=== PATIENT | female | born 1955 | race Caucasian/White ===

== ENCOUNTER 2020-04-11 18:14 | Emergency (ER) | payer SELFPAY ==
[2020-04-11] MEDS ORDERED: TORAdol 30 mg Injection IV ONE (18:28)
[2020-04-11] MEDS ORDERED: Sodium Chloride 0.9% 1000 ML 1,000 ML IV STA (18:28)
[2020-04-11] MEDS ORDERED: Zofran 4 MG/2 ML VIAL IV ONE (18:28)
[2020-04-11] MEDS ORDERED: Sodium Chloride 0.9% 1000 ML 1,000 ML ONE (18:33)
[2020-04-11] MEDS ORDERED: TORAdol 30 mg Injection ONE (18:33)
[2020-04-11] MEDS ORDERED: Zofran 4 MG/2 ML VIAL ONE (18:33)
--- NOTE | 2020-04-11 18:34 | ERPHSYRPT ---
- History of Present Illness Time Seen by Provider: 04/11/20 18:16 Historian: patient Exam Limitations: no limitations Physician History: Patient is here with abdominal pain. Lower. Patient states she has not had a bowel movement in 4 to 5 days. Very small bowel movements. She has tried home docusate. No falls or trauma. Patient has a previous total hysterectomy. Location: lower abdomen Quality: cramping, constipation Radiation: none Severity: moderate Duration: 4-5 days Timing: gradual Modifying factors/associated signs and symptoms: home docusate Timing/Duration: day(s) Activities at Onset: rest Quality: cramping Abdominal Pain Onset Location: periumbilical, suprapubic Pain Radiation: no radiation Severity of Pain-Max: mild Severity of Pain-Current: mild Modifying Factors: Improves With: analgesics Associated Symptoms: other (constipation ) Previous symptoms: no recent treatment Allergies/Adverse Reactions: codeine Allergy (Mild, Verified 07/07/14 12:11) Hives Home Medications: Clonidine HCl 0.1 mg [Catapres 0.1 MG] 0.1 mg PO TID PRN PRN 07/07/14 [History] Indomethacin 25 mg [Indocin 25 MG] 25 mg PO DAILY 07/07/14 [History] Levothyroxine Sodium [Synthroid] 175 mcg PO DAILY 07/07/14 [History] Metoprolol Succinate 100 mg [Toprol Xl 100 MG] 100 mg PO HS 07/07/14 [History] glipiZIDE [Glipizide] 5 mg PO DAILY 04/11/20 [History] hydroCHLOROthiazide [Hydrochlorothiazide] 25 mg PO DAILY 04/11/20 [History] lisinopriL [Lisinopril] 5 mg PO DAILY 04/11/20 [History] Hx Tetanus, Diphtheria Vaccination/Date Given: Yes Hx Influenza Vaccination/Date Given: No Hx Pneumococcal Vaccination/Date Given: No - Review of Systems Constitutional: No Fever, No Chills Eyes: No Symptoms Ears, Nose, & Throat: No Symptoms Respiratory: No Cough, No Dyspnea Cardiac: No Chest Pain, No Edema, No Syncope Abdominal/Gastrointestinal: Abdominal Pain, Other (constipation), No Nausea, No Vomiting, No Diarrhea Genitourinary Symptoms: No Dysuria Musculoskeletal: No Back Pain, No Neck Pain Skin: No Rash Neurological: No Dizziness, No Focal Weakness, No Sensory Changes Psychological: No Symptoms Endocrine: No Symptoms All Other Systems: Reviewed and Negative - Past Medical History Pertinent Past Medical History: Yes Neurological History: No Pertinent History ENT History: No Pertinent History Cardiac History: High Cholesterol, Hypertension Respiratory History: No Pertinent History Endocrine Medical History: Diabetes Type I, Hypothyroidism Musculoskeletal History: Arthritis GI Medical History: No Pertinent History History: No Pertinent History Psycho-Social History: No Pertinent History Female Reproductive Disorders: No Pertinent History - Past Surgical History Past Surgical History: Yes Neuro Surgical History: No Pertinent History Cardiac: No Pertinent History Respiratory: No Pertinent History Gastrointestinal: Appendectomy, Cholecystectomy Genitourinary: No Pertinent History Musculoskeletal: Orthopedic Surgery Female Surgical History: Hysterectomy - Social History Smoking Status: Never smoker Exposure to second hand smoke: No Drug Use: none Patient Lives Alone: No - Nursing Vital Signs Nursing Vital Signs: Initial Vital Signs Temperature 98.7 F 04/11/20 18:26 Pulse Rate 111 H 04/11/20 18:26 Respiratory Rate 20 04/11/20 18:26 Blood Pressure 220/100 04/11/20 18:26 O2 Sat by Pulse Oximetry 97 04/11/20 18:26 Pain Scale Pain Intensity 1 - Physical Exam General Appearance: no apparent distress, alert Eye Exam: PERRL/EOMI, eyes nml inspection Ears, Nose, Throat Exam: normal ENT inspection, pharynx normal, moist mucous membranes Neck Exam: normal inspection, non-tender, supple, full range of motion Respiratory Exam: normal breath sounds, lungs clear, No respiratory distress Cardiovascular Exam: regular rate/rhythm, normal heart sounds Gastrointestinal/Abdomen Exam: soft, other (very mild lower abdominal pain without rebound or guarding ), No tenderness, No mass Back Exam: normal inspection, normal range of motion, No CVA tenderness, No vertebral tenderness Extremity Exam: normal inspection, normal range of motion, pelvis stable Neurologic Exam: alert, oriented x 3, cooperative, normal mood/affect, nml cerebellar function, sensation nml, No motor deficits Skin Exam: normal color, warm, dry - Course Nursing assessment & vital signs reviewed: Yes Ordered Tests: Active Orders 24 hr Category Date Time Status EKG-ER Only STAT Care 04/11/20 18:28 Active IV Insertion STAT Care 04/11/20 18:28 Active ABDOMEN AND PELVIS W/0 CONTRAS [CT] Stat Exams 04/11/20 19:39 Taken CBC W DIFF Stat Lab 04/11/20 18:50 Completed CMP Stat Lab 04/11/20 18:50 Completed CULTURE,URINE Stat Lab 04/11/20 18:40 Received LIPASE Stat Lab 04/11/20 18:50 Completed TROPONIN Q3H Lab 04/11/20 18:50 Completed TROPONIN Q3H Lab 04/11/20 21:30 Ordered TROPONIN Q3H Lab 04/12/20 00:30 Ordered TROPONIN Q3H Lab 04/12/20 03:30 Ordered TROPONIN Q3H Lab 04/12/20 06:30 Ordered UA W/RFX UR CULTURE Stat Lab 04/11/20 18:40 Completed Medication Summary Discontinued Medications Generic Name Dose Route Start Last Admin Trade Name Jasperq PRN Reason Stop Dose Admin Clonidine 0.1 mg 04/11/20 18:48 04/11/20 18:52 Catapres 0.1 Mg PO 04/11/20 18:49 0.1 mg STAT ONE Administration Clonidine Confirm 04/11/20 18:51 Catapres 0.1 Mg Administered 04/11/20 18:52 Dose 0.1 mg .ROUTE .STK-MED ONE Sodium Chloride 1,000 mls @ 999 mls/hr 04/11/20 18:28 04/11/20 18:35 Sodium Chloride 0.9% 1000 Ml IV 04/11/20 19:28 999 mls/hr .Q1H1M STA Administration Sodium Chloride Confirm 04/11/20 18:33 Sodium Chloride 0.9% 1000 Ml Administered 04/11/20 18:34 Dose 1,000 mls @ ud .ROUTE .STK-MED ONE Ketorolac Tromethamine 30 mg 04/11/20 18:28 04/11/20 18:35 Toradol 30 Mg Injection IV 04/11/20 18:29 30 mg STAT ONE Administration Ketorolac Tromethamine Confirm 04/11/20 18:33 Toradol 30 Mg Injection Administered 04/11/20 18:34 Dose 30 mg .ROUTE .STK-MED ONE Metoprolol Tartrate 100 mg 04/11/20 18:48 04/11/20 18:52 Lopressor 25mg Tab PO 04/11/20 18:49 100 mg STAT ONE Administration Metoprolol Tartrate Confirm 04/11/20 18:51 Lopressor 25mg Tab Administered 04/11/20 18:52 Dose 100 mg .ROUTE .STK-MED ONE Ondansetron HCl 4 mg 04/11/20 18:28 04/11/20 18:35 Zofran 4 Mg/2 Ml Vial IV 04/11/20 18:29 4 mg STAT ONE Administration Ondansetron HCl Confirm 04/11/20 18:33 Zofran 4 Mg/2 Ml Vial Administered 04/11/20 18:34 Dose 4 mg .ROUTE .STK-MED ONE Lab/Rad Data: Laboratory Result Diagrams 04/11/20 18:50 04/11/20 18:50 Laboratory Results 04/11/20 04/11/20 04/11/20 Range/Units 18:50 18:50 18:50 WBC 7.7 (4.0-10.5) K/mm3 RBC 4.04 L (4.1-5.4) M/mm3 Hgb 12.5 (12.0-16.0) gm/dl Hct 38.2 (35-47) % MCV 94.6 (78-100) fl MCH 30.9 (26-32) pg MCHC 32.7 (32-36) g/dl RDW 14.1 H (11.5-14.0) % Plt Count 216 (150-450) K/mm3 MPV 9.7 (7.5-11.0) fl Gran % 73.8 H (36.0-66.0) % Eos # (Auto) 0.08 (0-0.5) Absolute Lymphs (auto) 1.14 (1.0-4.6) Absolute Monos (auto) 0.76 (0.0-1.3) Lymphocytes % 14.9 L (24.0-44.0) % Monocytes % 9.9 (0.0-12.0) % Eosinophils % 1.0 (0.00-5.0) % Basophils % 0.4 (0.0-0.4) % Absolute Granulocytes 5.65 (1.4-6.9) Basophils # 0.03 (0-0.4) Sodium 138 (137-145) mmol/L Potassium 3.6 (3.5-5.1) mmol/L Chloride 102 (98-107) mmol/L Carbon Dioxide 31 H (22-30) mmol/L Anion Gap 8.7 (5-15) MEQ/L BUN 24 H (7-17) mg/dL Creatinine 1.61 H (0.52-1.04) mg/dL Estimated GFR 34.4 ML/MIN Glucose 150 H (74-106) mg/dL Calcium 9.1 (8.4-10.2) mg/dL Total Bilirubin 0.70 (0.2-1.3) mg/dL AST 25 (14-36) U/L ALT 17 (0-35) U/L Alkaline Phosphatase 69 (38-126) U/L Troponin I 0.018 (0.000-0.034) ng/mL Serum Total Protein 7.1 (6.3-8.2) g/dL Albumin 4.2 (3.5-5.0) g/dL Lipase 69 (23-300) U/L Urine Color (YELLOW) Urine Appearance (CLEAR) Urine pH (5-6) Ur Specific [place] (1.005-1.025) Urine Protein (Negative) Urine Ketones (NEGATIVE) Urine Blood (0-5) Burt/ul Urine Nitrite (NEGATIVE) Urine Bilirubin (NEGATIVE) Urine Urobilinogen (0-1) mg/dL Ur Leukocyte Esterase (NEGATIVE) Urine WBC (Auto) (0-5) /HPF Urine RBC (Auto) (0-2) /HPF U Hyaline Cast (Auto) (0-2) /LPF U Epithel Cells (Auto) (FEW) /HPF Urine Bacteria (Auto) (NEGATIVE) /HPF Urine Mucus (Auto) (NEGATIVE) /HPF Urine Culture Reflexed (NO) Urine Glucose (NEGATIVE) mg/dL 04/11/20 Range/Units 18:40 WBC (4.0-10.5) K/mm3 RBC (4.1-5.4) M/mm3 Hgb (12.0-16.0) gm/dl Hct (35-47) % MCV (78-100) fl MCH (26-32) pg MCHC (32-36) g/dl RDW (11.5-14.0) % Plt Count (150-450) K/mm3 MPV (7.5-11.0) fl Gran % (36.0-66.0) % Eos # (Auto) (0-0.5) Absolute Lymphs (auto) (1.0-4.6) Absolute Monos (auto) (0.0-1.3) Lymphocytes % (24.0-44.0) % Monocytes % (0.0-12.0) % Eosinophils % (0.00-5.0) % Basophils % (0.0-0.4) % Absolute Granulocytes (1.4-6.9) Basophils # (0-0.4) Sodium (137-145) mmol/L Potassium (3.5-5.1) mmol/L Chloride (98-107) mmol/L Carbon Dioxide (22-30) mmol/L Anion Gap (5-15) MEQ/L BUN (7-17) mg/dL Creatinine (0.52-1.04) mg/dL Estimated GFR ML/MIN Glucose (74-106) mg/dL Calcium (8.4-10.2) mg/dL Total Bilirubin (0.2-1.3) mg/dL AST (14-36) U/L ALT (0-35) U/L Alkaline Phosphatase (38-126) U/L Troponin I (0.000-0.034) ng/mL Serum Total Protein (6.3-8.2) g/dL Albumin (3.5-5.0) g/dL Lipase (23-300) U/L Urine Color DANIELA (YELLOW) Urine Appearance CLOUDY (CLEAR) Urine pH 5.0 (5-6) Ur Specific [place] 1.032 (1.005-1.025) Urine Protein 100 (Negative) Urine Ketones NEGATIVE (NEGATIVE) Urine Blood NEGATIVE (0-5) Burt/ul Urine Nitrite NEGATIVE (NEGATIVE) Urine Bilirubin SMALL (NEGATIVE) Urine Urobilinogen 2 (0-1) mg/dL Ur Leukocyte Esterase NEGATIVE (NEGATIVE) Urine WBC (Auto) 3-5 (0-5) /HPF Urine RBC (Auto) 3-5 (0-2) /HPF U Hyaline Cast (Auto) 11-25 (0-2) /LPF U Epithel Cells (Auto) FEW (FEW) /HPF Urine Bacteria (Auto) FEW (NEGATIVE) /HPF Urine Mucus (Auto) SLIGHT (NEGATIVE) /HPF Urine Culture Reflexed YES (NO) Urine Glucose NEGATIVE (NEGATIVE) mg/dL - Progress Progress: improved Progress Note: 04/11/20 18:34 differential diagnosis includes kidney stone, compression fracture, infection, UTI, triple AAA - basic labs including: CBC, lipase, CMP, UA - insert IV for fluids, pain meds, nausea control - consider imaging: CT ab/pelvis 04/11/20 20:26 CT scan was read by Dr. Pritchard. A formal report was handed to me. On this he saw some stool constipation. However, patient had no small bowel obstruction. Patient was given her home blood pressure medication here. States that she has not taken it in 48 hours. Patient feels improved with his blood pressure medication. Her blood pressure also improved here in the emergency department without issue. She is able to take p.o. Give her mag citrate MiraLAX going home. She will need an abdominal reexam in 24 hours with her PCP. She will need to return here for any new or changing symptoms. Plan of care was discussed with patient and all questions answered. The patient is agreeable to be discharged home and both verbal and printed discharge instructions were provided.The patient agreed to seek outpatient follow up as discussed. The patient was given strict instructions to return to the emergency department for worsening symptoms or any other emergent concerns. The patient verbalized understanding. - Departure Departure Disposition: Home Clinical Impression: Constipation Condition: Stable Critical Care Time: No Referrals: SUSAN HENRY [Primary Care Provider] - Instructions: Constipation, Adult (DC) Additional Instructions: See your PCP for abdominal reexam in 24 hours. Return here sooner for new or changing symptoms. Prescriptions: Polyethylene Glycol 3350 17 gm [Miralax Powder 17GM PACKET] 17 gm PO DAILY 5 Days #5 packet Bisacodyl/Magnesium Citrate [Tridrate Bowel Evacuant Kit] 1 each EVENING MEAL #1 combo..pkg
[2020-04-11] MEDS ORDERED: Catapres 0.1 MG PO ONE (18:48)
[2020-04-11] MEDS ORDERED: Lopressor 25MG Tab PO ONE (18:48)
[2020-04-11] MEDS ORDERED: Catapres 0.1 MG ONE (18:51)
[2020-04-11] MEDS ORDERED: Lopressor 25MG Tab ONE (18:51)
[2020-04-11 19:05] LABS: Absolute Neutrophil Ct (ANC) 5.65 (1.4-6.9); BASOPHIL % 0.4 % (0.0-0.4); Basophil (Absolute #) 0.03 (0-0.4); Eosinophil (Absolute #) 0.08 (0-0.5); Hematocrit 38.2 % (35-47); Hemoglobin 12.5 gm/dl (12.0-16.0); Lymphocyte (Absolute #) 1.14 (1.0-4.6); Lymphocytes % 14.9 % (24.0-44.0); Mean Cell Volume 94.6 fl (78-100); Mean Corpuscular Hemoglobin 30.9 pg (26-32); Mean Corpuscular Hgb Concent. 32.7 g/dl (32-36); Mean Platelet Volume 9.7 fl (7.5-11.0); Monocyte (Absolute #) 0.76 (0.0-1.3); Monocytes % 9.9 % (0.0-12.0); Neutrophil % 73.8 % (36.0-66.0); Platelet Count 216 K/mm3 (150-450); Red Blood Count 4.04 M/mm3 (4.1-5.4); Red Cell Distribution Width 14.1 % (11.5-14.0); White Blood Count 7.7 K/mm3 (4.0-10.5)
[2020-04-11 19:16] LABS: Appearance CLOUDY (CLEAR); Bacteria FEW /HPF (NEGATIVE); Bilirubin SMALL (NEGATIVE); Blood NEGATIVE Ery/ul (0-5); Epithelial Cells FEW /HPF (FEW); Glucose NEGATIVE (NEGATIVE); Ketones NEGATIVE (NEGATIVE); Leukocyte Esterase NEGATIVE (NEGATIVE); Mucus SLIGHT /HPF (NEGATIVE); Nitrite NEGATIVE (NEGATIVE); Protein,Urine Dip 100 (Negative); Specific Gravity 1.032 (1.005-1.025); Urobilinogen 2 mg/dL (0-1)
[2020-04-11 19:23] LABS: ALBUMIN 4.2 g/dL (3.5-5.0); ANION GAP 8.7 MEQ/L (5-15); BILIRUBIN,TOTAL 0.7 mg/dL (0.2-1.3); Calcium 9.1 mg/dL (8.4-10.2); Creatinine 1 1.61 mg/dL (0.52-1.04); EST GLOMERULAR FILTRATION RATE 34.4 ML/MIN; Potassium 3.6 mmol/L (3.5-5.1); Total Protein 7.1 g/dL (6.3-8.2)
[2020-04-11 20:33] VITALS: BP 182/107; PULSE 72; O2SAT 94
--- NOTE | 2020-04-12 08:47 | XRAY ---
Indication: Constipation. Multiple contiguous axial images obtained through the abdomen and pelvis without contrast as ordered. Comparison: None Lung bases demonstrates bibasilar posterior medial peripheral subsegmental atelectasis/scarring. Heart is not enlarged. Small hiatal hernia. Noncontrasted stomach and bowel loops appear nonobstructed. Cecum demonstrates 2.7 cm lipoma. There is mild scattered colonic fecal debris predominantly in the descending and sigmoid colon with moderate rectal impaction. There has been appendectomy, cholecystectomy, and hysterectomy. No free fluid/air. Mild diffuse fatty liver. Remaining liver, pancreas, spleen, adrenal glands, kidneys, ureters, bladder, and aorta appear unremarkable for noncontrast exam. Osseous structures intact with mild/moderate multilevel degenerative spondylosis including 1-2 mm L4 spondylolisthesis. Moderate-sized fatty umbilical hernia. Impression: 1. Mild fecal stasis with rectal impaction. 2. Incidental cecal lipoma, small hiatal hernia, fatty liver, fatty umbilical hernia, and chronic bony findings. 3. Remaining CT abdomen/pelvis without contrast exam is negative.
== END 2020-04-11 20:53 | disposition home or self-care (01) ==
LOC: ED 18:14
DX: K59.00 Constipation, unspecified (principal); R10.30 Lower abdominal pain, unspecified; I10 Essential (primary) hypertension; E10.9 Type 1 diabetes mellitus without complications; E78.00 Pure hypercholesterolemia, unspecified; E03.9 Hypothyroidism, unspecified; Z79.899 Other long term (current) drug therapy
CPT/HCPCS: 36415; 74176; 80053; 81001; 83690; 84484; 85025; 87086; 93005; 96374; 96375; 99284; J1885; J2405; A9270-GY

== ENCOUNTER 2020-10-06 20:03 | Emergency (ER) | payer OTHER ==
[2020-10-06] MEDS ORDERED: XYLOCAINE 1% HCL 20 ML MDV IJ ONE (20:04)
--- NOTE | 2020-10-06 20:44 | ERPHSYRPT ---
- History of Present Illness Time Seen by Provider: 10/06/20 20:38 Source: patient, family Exam Limitations: no limitations Physician History: This is a 65-year-old obese white female who has a history of hypertension, diabetes and hypothyroidism and is taking Eliquis chronically for history of DVT and pulmonary embolus. Patient does not have any chest pain or shortness of breath. She is taking her medication as prescribed per her report. Patient has noticed pain in her bilateral lower extremities primarily anterior pretibial right worse than left. There is associated redness and warmth. She denies fever and chills. Patient denies keeping her legs elevated at night above level of her heart and also does not keep her legs elevated during the day. Timing/Duration: day(s) (A few days) Quality: burning, painful Severity: mild Location: extremities (Bilateral lower extremities pretibial) Possible Causes: other (Cellulitis) Associated Symptoms: change in skin texture, No difficulty breathing, No fever Allergies/Adverse Reactions: codeine Allergy (Mild, Verified 10/06/20 20:22) Hives Home Medications: Clonidine HCl 0.1 mg [Catapres 0.1 MG] 0.1 mg PO DAILY 07/07/14 [History] Metoprolol Succinate 100 mg [Toprol Xl 100 MG] 100 mg PO BID 07/07/14 [History] glipiZIDE [Glipizide] 10 mg PO BID 04/11/20 [History] lisinopriL [Lisinopril] 5 mg PO DAILY 04/11/20 [History] Apixaban [Eliquis] 1 tab PO DAILY 10/06/20 [History] Clonidine HCl 1 tab PO BID 10/06/20 [History] Glipizide 1 tab PO DAILY 10/06/20 [History] Levothyroxine Sodium 25 Mcg [Synthroid 25 Mcg] 1 tab PO DAILY 10/06/20 [History] Levothyroxine Sodium [Levothyroxine] 1 cap PO DAILY 10/06/20 [History] Hx Tetanus, Diphtheria Vaccination/Date Given: Yes Hx Influenza Vaccination/Date Given: No Hx Pneumococcal Vaccination/Date Given: No Travel Risk - International Travel Have you traveled outside of the country in past 3 weeks: No - Coronavirus Screening Are you exhibiting any of the following symptoms?: No Close contact with a COVID-19 positive Pt in past 14-21 Days: No - Vaccine Status Have you recieved a Covid-19 vaccination: No - Review of Systems Constitutional: No Symptoms Eyes: No Symptoms Ears, Nose, & Throat: No Symptoms Respiratory: No Symptoms Cardiac: No Symptoms Abdominal/Gastrointestinal: No Symptoms Genitourinary Symptoms: No Symptoms Musculoskeletal: No Symptoms Skin: Cellulitis (Bilateral lower extremities pretibial region.) Neurological: No Symptoms Psychological: No Symptoms Endocrine: No Symptoms Hematologic/Lymphatic: No Symptoms Immunological/Allergic: No Symptoms All Other Systems: Reviewed and Negative - Past Medical History Pertinent Past Medical History: Yes Neurological History: No Pertinent History ENT History: No Pertinent History Cardiac History: High Cholesterol, Hypertension Respiratory History: No Pertinent History Endocrine Medical History: Diabetes Type I, Hypothyroidism Musculoskeletal History: Arthritis GI Medical History: No Pertinent History History: No Pertinent History Psycho-Social History: No Pertinent History Female Reproductive Disorders: No Pertinent History - Past Surgical History Past Surgical History: Yes Neuro Surgical History: No Pertinent History Cardiac: No Pertinent History Respiratory: No Pertinent History Gastrointestinal: Appendectomy, Cholecystectomy Genitourinary: No Pertinent History Musculoskeletal: Orthopedic Surgery Female Surgical History: Hysterectomy - Social History Smoking Status: Never smoker Exposure to second hand smoke: No Drug Use: none Patient Lives Alone: No - Physical Exam General Appearance: no apparent distress, alert, anxiety, obese Eye Exam: PERRL/EOMI, eyes nml inspection Ears, Nose, Throat Exam: normal ENT inspection, moist mucous membranes Neck Exam: normal inspection, non-tender, supple, full range of motion Respiratory Exam: airway intact, No chest tenderness, No respiratory distress Gastrointestinal/Abdomen Exam: No tenderness Pelvic Exam: not done Rectal Exam: not done Back Exam: normal inspection, normal range of motion, No CVA tenderness, No vertebral tenderness Extremity Exam: normal range of motion, pelvis stable, tenderness (Bilateral lower extremities pretibial regions. There is associated redness and warmth present.), other (Palpable pedal pulses bilaterally.) Neurologic Exam: alert, oriented x 3, cooperative, director of category management II-XII nml as tested, normal mood/affect, nml cerebellar function, nml station & gait, sensation nml Skin Exam: other (See above. Cellulitis as described above) Lymphatic Exam: No adenopathy SpO2 Interpretation: normal O2 Delivery: Room Air - Course Nursing assessment & vital signs reviewed: Yes - Progress Progress: unchanged Progress Note: 10/06/20 20:42 Medical decision making: This patient is fully anticoagulated on Eliquis. She has been on this medication for 2 months. Patient states that she is taking her medication as prescribed. She does state that she keeps her leg hanging caudally throughout most the day and night. She does not tend to elevate her legs above the level of her heart. She appears to me to have cellulitis bilaterally in her lower extremities. Is in the pretibial region. It is almost in the distribution of chronic venous stasis disease. However I think this is more cellulitis. There is warmth present. It is also tender. She also appears to have lymphedema bilaterally. I spoke with the patient's primary doctor, Dr. Susan Rouse. We discussed the emergency room work-up. We both decided that the patient should be treated with antibiotics then keep her legs elevated overnight and throughout the day when she is not ambulating. Patient is to continue taking her Eliquis. She is to follow-up with Dr. Susan Rouse by phone on Friday, October 09, 2020. Discussed with : Storm Counseled pt/family regarding: diagnosis, need for follow-up - Departure Departure Disposition: Home Clinical Impression: Cellulitis, Lymphedema Condition: Stable Critical Care Time: No Referrals: SUSAN ROUSE [Primary Care Provider] - Additional Instructions: Elevate your legs above the level of your heart at all times when you are not a mbulating. Take your medication as prescribed. Follow-up with Dr. Rouse's office on Friday, October 09, 2020 to make arrangements for pressure stockings and nighttime lymphedema machine if indicated. Prescriptions: Levofloxacin [Levaquin 500 MG Tablet] 500 mg PO DAILY #7 tablet
[2020-10-06 20:50] VITALS: BP 185/91; PULSE 73; O2SAT 98
[2020-10-06] MEDS ORDERED: Rocephin 1000 MG INJ IM ONE (20:56)
[2020-10-06] MEDS ORDERED: Levofloxacin 500 MG Tablet PO ONE (20:56)
[2020-10-06] MEDS ORDERED: Levofloxacin 500 MG Tablet ONE (21:05)
[2020-10-06] MEDS ORDERED: Rocephin 1000 MG INJ ONE (21:05)
== END 2020-10-06 21:39 | disposition home or self-care (01) ==
LOC: ED 20:03
DX: L03.116 Cellulitis of left lower limb (principal); L03.115 Cellulitis of right lower limb; I89.0 Lymphedema, not elsewhere classified; Z79.01 Long term (current) use of anticoagulants; Z79.899 Other long term (current) drug therapy; I10 Essential (primary) hypertension; E03.9 Hypothyroidism, unspecified; E10.9 Type 1 diabetes mellitus without complications
CPT/HCPCS: 96372; 99284; J0696; A9270-GY

== ENCOUNTER 2020-11-15 16:50 | Emergency (ER) | payer OTHER ==
--- NOTE | 2020-11-15 17:07 | ERPHSYRPT ---
- History of Present Illness Time Seen by Provider: 11/15/20 17:07 Source: patient Exam Limitations: no limitations Physician History: This is a 65-year-old obese white female who sees Dr. Mckeon for her medical issues including hypertension, [id number] diabetes, hypothyroid. 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 She is fully an ticoagulated on Eliquis. Since 10/06/2020, the patient has been on 3 different antibiotic treatments for treatment of her bilateral lower leg cellulitis. Patient presents with worsening bilateral lower leg pain. She does keep her legs elevated above level heart and does wear bilateral Gideon wraps from her toes to below the knees. Patient does have some kidney issues and her last buttonhole maker was Dr. Leong she has not seen him in quite a while. She has been off antibiotics for the last 7 to 10 days. Method of Injury: other (No injury) Occurred: other (Chronic) Quality: aching Severity of Pain-Max: mild (To moderate) Severity of Pain-Current: mild (Mild to moderate) Lower Extremities Pain: leg: bilateral Modifying Factors: Improves With: movement Allergies/Adverse Reactions: codeine Allergy (Mild, Verified 11/15/20 17:28) Hives Home Medications: Clonidine HCl 0.1 mg [Catapres 0.1 MG] 0.1 mg PO DAILY 07/07/14 [History] Metoprolol Succinate 100 mg [Toprol Xl 100 MG] 100 mg PO BID 07/07/14 [History] glipiZIDE [Glipizide] 10 mg PO BID 04/11/20 [History] lisinopriL [Lisinopril] 5 mg PO DAILY 04/11/20 [History] Apixaban [Eliquis] 1 tab PO DAILY 10/06/20 [History] Clonidine HCl 1 tab PO BID 10/06/20 [History] Glipizide 1 tab PO DAILY 10/06/20 [History] Levothyroxine Sodium 25 Mcg [Synthroid 25 Mcg] 1 tab PO DAILY 10/06/20 [History] Levothyroxine Sodium [Levothyroxine] 1 cap PO DAILY 10/06/20 [History] Amlodipine Besylate 5 mg [Norvasc 5 mg] 5 mg PO DAILY 11/15/20 [History] Loratadine 10 mg [Claritin 10 mg] 10 mg PO DAILY 11/15/20 [History] PARoxetine HCl [Paxil] 20 mg PO DAILY 11/15/20 [History] Hx Tetanus, Diphtheria Vaccination/Date Given: Yes Hx Influenza Vaccination/Date Given: No Hx Pneumococcal Vaccination/Date Given: No Travel Risk - International Travel Have you traveled outside of the country in past 3 weeks: No - Coronavirus Screening Are you exhibiting any of the following symptoms?: No Close contact with a COVID-19 positive Pt in past 14-21 Days: No - Vaccine Status Have you recieved a Covid-19 vaccination: No - Review of Systems Constitutional: No Symptoms Eyes: No Symptoms Ears, Nose, & Throat: No Symptoms Respiratory: No Symptoms Cardiac: No Symptoms Abdominal/Gastrointestinal: No Symptoms Genitourinary Symptoms: No Symptoms Musculoskeletal: Other (Bilateral lower leg pain) Skin: Dryness, Other Neurological: No Symptoms Psychological: No Symptoms Endocrine: No Symptoms Hematologic/Lymphatic: No Symptoms Immunological/Allergic: No Symptoms All Other Systems: Reviewed and Negative - Past Medical History Pertinent Past Medical History: Yes Neurological History: No Pertinent History ENT History: No Pertinent History Cardiac History: High Cholesterol, Hypertension Respiratory History: No Pertinent History Endocrine Medical History: Diabetes Type I, Hypothyroidism Musculoskeletal History: Arthritis GI Medical History: No Pertinent History History: No Pertinent History Psycho-Social History: No Pertinent History Female Reproductive Disorders: No Pertinent History - Past Surgical History Past Surgical History: Yes Neuro Surgical History: No Pertinent History Cardiac: No Pertinent History Respiratory: No Pertinent History Gastrointestinal: Appendectomy, Cholecystectomy Genitourinary: No Pertinent History Musculoskeletal: Orthopedic Surgery Female Surgical History: Hysterectomy - Social History Smoking Status: Never smoker Exposure to second hand smoke: No Drug Use: none Patient Lives Alone: No - Nursing Vital Signs Nursing Vital Signs: Initial Vital Signs Temperature 97.7 F 11/15/20 17:13 Pulse Rate 86 11/15/20 17:13 Blood Pressure 160/88 11/15/20 17:13 O2 Sat by Pulse Oximetry 96 11/15/20 17:13 Pain Scale Pain Intensity 6 - Physical Exam General Appearance: no apparent distress, alert, anxiety, obese Eyes, Ears, Nose, Throat Exam: normal ENT inspection, moist mucous membranes Neck Exam: normal inspection, non-tender, supple, full range of motion Cardiovascular/Respiratory Exam: chest non-tender, no respiratory distress Gastrointestinal/Abdominal Exam: non-tender Back Exam: normal inspection, normal range of motion, No CVA tenderness, No vertebral tenderness Hips Exam: bilateral: non-tender, normal inspection, normal range of motion, no evidence of injury Legs Exam: bilateral leg: no evidence of injury, soft tissue tenderness (Dryness, lymphedema bilateral lower extremity) Knees Exam: bilateral knee: non-tender, normal inspection, normal range of motion, no evidence of injury, soft tissue tenderness (Dryness, lymphedema) Ankle Exam: bilateral ankle: swelling (Dryness; lymphedema) Foot Exam: bilateral foot: non-tender, normal inspection, normal range of motion, no evidence of injury Neuro/Tendon Exam: normal sensation, normal motor functions, normal tendon functions, no evidence tendon injury Mental Status Exam: alert, oriented x 3, cooperative Skin Exam: normal color, warm, other (Generalized bilateral lower extremity dryness. No obvious cellulitis. Patient has significant bilateral lower ext remity lymphedema.) SpO2 Interpretation: normal O2 Delivery: Room Air - Course Nursing assessment & vital signs reviewed: Yes Ordered Tests: Active Orders 24 hr Category Date Time Status VENOUS BILATERAL EXTREMITY [US] Stat Exams 11/15/20 17:53 Taken BMP Stat Lab 11/15/20 19:00 Completed Medication Summary Discontinued Medications Generic Name Dose Route Start Last Admin Trade Name Paola PRN Reason Stop Dose Admin Hydrocodone Bitart/Acetaminophen 1 tab 11/15/20 18:29 11/15/20 18:51 [place] 5/325 Mg PO 11/15/20 18:30 1 tab STAT ONE Administration Hydrocodone Bitart/Acetaminophen Confirm 11/15/20 18:50 [place] 5/325 Mg Administered 11/15/20 18:51 Dose 1 tab .ROUTE .STK-MED ONE Lab/Rad Data: Laboratory Result Diagrams 11/15/20 19:00 Laboratory Results 11/15/20 Range/Units 19:00 Sodium 138 (137-145) mmol/L Potassium 4.0 (3.5-5.1) mmol/L Chloride 105 (98-107) mmol/L Carbon Dioxide 27 (22-30) mmol/L Anion Gap 10.3 (5-15) MEQ/L BUN 18 H (7-17) mg/dL Creatinine 1.32 H (0.52-1.04) mg/dL Estimated GFR 43.2 ML/MIN Glucose 227 H (74-106) mg/dL Calcium 8.8 (8.4-10.2) mg/dL - Progress Progress: improved, pain not gone completely, re-examined Progress Note: 11/15/20 18:04 Medical decision making: This patient, in my opinion after examination, does not have cellulitis. She does have very dry skin in the bilateral lower extremities and feet and ankles. She has significant lymphedema present. It is my plan to perform a bilateral lower extremity venous ultrasound to evaluate for deep venous thrombosis. We will also perform a BMP looking at BUN creatinine and GFR. Patient also needs to follow-up with her buttonhole maker. I think this may be the cause of her increasing edema which secondarily is causing pain in her lower extremities. I will write a prescription for pain medication short-term for her. 11/15/20 18:40 Bilateral lower extremity venous Doppler ultrasound reveals no evidence of any deep venous thromboses. Counseled pt/family regarding: lab results, diagnosis, need for follow-up, rad results - Departure Departure Disposition: Home Clinical Impression: Bilateral lower extremity pain, Lymphedema Condition: Stable Critical Care Time: No Referrals: SUSAN HENRY [Primary Care Provider] - Additional Instructions: Moisturize your lower legs twice a day with unscented lotion. Continue to elevate your legs and wear your Gideon wrap's when not ambulating. Call your buttonhole maker to make a follow-up appointment. Follow-up with your primary care provider for further management of your leg swelling and pain control. Prescriptions: Hydrocodone/APAP 5/325 [[place] 5/325 mg] 1 each PO Q12H PRN PRN #6 tablet MDD 2 PRN Reason: Pain
[2020-11-15 18:16] VITALS: PULSE 80
[2020-11-15] MEDS ORDERED: NORCO 5/325 MG PO ONE (18:29)
[2020-11-15] MEDS ORDERED: NORCO 5/325 MG ONE (18:50)
[2020-11-15 19:17] LABS: ANION GAP 10.3 MEQ/L (5-15); Calcium 8.8 mg/dL (8.4-10.2); Creatinine 1 1.32 mg/dL (0.52-1.04); EST GLOMERULAR FILTRATION RATE 43.2 ML/MIN
[2020-11-15 19:55] VITALS: BP 176/97; O2SAT 95
--- NOTE | 2020-11-16 08:44 | XRAY ---
Indication: Pain and swelling. Two-dimensional sonogram and color Doppler imaging of the major venous vessels of the left and right leg was performed. Comparison: None No thrombus seen in the examined deep venous vessels of the left and right leg including greater saphenous vein. Veins demonstrate normal compressibility. Venous waveforms are normal with and without augmentation. Impression: Left and right legs negative for DVT. Comment: Preliminary report was given.
== END 2020-11-15 19:55 | disposition home or self-care (01) ==
LOC: ED 16:50
DX: M79.669 Pain in unspecified lower leg (principal); I89.0 Lymphedema, not elsewhere classified
CPT/HCPCS: 36415; 80048; 93970; 99284; A9270-GY